=== PATIENT | female | born 1990 | race Hispanic/Latino ===

== ENCOUNTER 2021-04-21 07:18 | Day surgery (SDC) | payer OTHER ==
[~2021-04-21 07:18] MED LIST: LACTATED RINGERS 1,000 ML IV SCH; MIDAZOLAM 2 MG/2 ML INJ IV NR; SCOPOLAMINE TRANSDERMAL PATCH 72 HR TD NR
[2021-04-21] MEDS ORDERED: ceFAZolin/STERILE WATER 2 GM/20 ML SYRINGE IV NR (08:10)
--- NOTE | 2021-04-21 08:14 | Anesthesia Day of Surgery ---
Anesthesia Day of Surgery - Day of Surgery Patient Examined: Yes Patient H&P Reviewed: Yes Patient is NPO: Yes
--- NOTE | 2021-04-21 08:14 | Anesthesia Consultation ---
Anesthesia Consult and Med Hx Date of service: 04/21/21 - Airway Anesthetic Teeth Evaluation: Good ROM Head & Neck: Adequate Mental/Hyoid Distance: Adequate Mallampati Class: Class II Intubation Access Assessment: Probably Good - Pre-Operative Health Status ASA Pre-Surgery Classification: ASA3 Proposed Anesthetic Plan: General - Pulmonary Hx Smoking: No Hx Respiratory Symptoms: No (COVID+ 02/2020; symptoms resolved) - Cardiovascular System Hx Hypertension: No Hx Heart Attack/AMI: No Hx Percutaneous Transluminal Coronary Angioplasty (PTCA): No - Central Nervous System CVA: No - Endocrine Hx Renal Disease: No Hx Liver Disease: No Hx Non-Insulin Dependent Diabetes: Yes Hx Hypothyroidism: Yes (took synthroid this morning) - Other Systems Hx Obesity: Yes (BMI 43) - Additional Comments Anesthesia Medical History Comments: Hx PONV.
[2021-04-21] MEDS ORDERED: ceFAZolin/Water 2 GM/20 ML 2 GM/20 ML SYRINGE IV ONE (08:21)
[2021-04-21] MEDS ORDERED: ONDANSETRON 4 MG/2 ML INJ ONE (09:59)
[2021-04-21] MEDS ORDERED: fentaNYL 100 MCG/2 ML INJ ONE (09:59)
[2021-04-21] MEDS ORDERED: LIDOCAINE MPF (2%) 20 MG/1 ML VIAL 5 ML ONE (09:59)
[2021-04-21] MEDS ORDERED: propofoL 200 MG/20 ML VIAL IV ONE (10:00)
--- NOTE | 2021-04-21 11:04 | Post Operative Note ---
Pre-op diagnosis: pelvic pain Post-op diagnosis: same Findings: good capacity Procedure: cysto hydrodistension Anesthesia: GETJason Surgeon: BLANQUITA HDZ Estimated blood loss: none Pathology: none Condition: stable Disposition: PACU
--- NOTE | 2021-04-21 11:05 | Discharge Summary ---
Short Stay Discharge Plan Activity: no restrictions Weight Bearing Status: Full Weight Bearing Diet: low fat, low cholesterol Durable Medical Equipment Needed Upon Discharge: other (inc fluids ) Follow up with: CAROL LERMA MD [Primary Care Provider] - 7 Days BLANQUITA HDZ MD [Staff Physician] - 7 Days
--- NOTE | 2021-04-21 11:35 | Operative Report ---
DATE OF SURGERY: 04/21/2021 PREOPERATIVE DIAGNOSES: Pelvic pain, bladder pain. POSTOPERATIVE DIAGNOSES: Pelvic pain, bladder pain. PROCEDURES: Cystoscopy, retrograde and hydrodistention. SURGEON: Dc Rankin MD. ANESTHESIA: General. FINDINGS: This is a woman with pelvic pain and discomfort. She now presents for cystoscopy. DESCRIPTION OF PROCEDURE: The patient was brought to operating room and placed on the operating table. Following induction of anesthesia, placed in lithotomy position, prepped and draped in usual sterile fashion. Cystoscopy showed a good bladder capacity. Retrograde showed good filling, good drainage bilaterally. No persistent filling defects. The bladder was filled and easily accommodated about 1000 mL and hydrodistention was done twice. There was no significant glomerulations, no ulcers. The patient tolerated the procedure well. No bleeding. Bimanual exam showed no masses. The patient tolerated the procedure well and brought to recovery in stable condition. TID: [id number] RECEIPT: [id number] ANABELL/LAMINE
--- NOTE | 2021-04-21 12:09 | Post Anesthesia Evaluation ---
- Post Anesthesia Evaluation Patient Participated: Yes Airway Patent: Yes Stable Respiratory Function: Yes Nausea/Vomiting: No Temp > 96.8F: Yes Pain Manageable: Yes Adequeate Hydration: Yes Anesthesia Complications: No
[2021-04-21 18:47] VITALS: BP 126/70
--- NOTE | 2021-04-22 14:55 | Fluoroscopy Report ---
FL RETROGRADE UROGRAPHY Technique: Intraoperative fluoroscopic guidance was provided. Fluoroscopy time: 0.1 minutes. Fluoroscopy images: 8. Findings/Impression: Intraoperative fluoroscopic guidance for Dr. Rankin. Please see procedure repo rt for further details. Signer Name: Miguel Lazaro MD Signed: 04/21/2021 11:40 AM Workstation Name: [id number]
== END 2021-04-21 07:19 | disposition home or self-care (01) ==
LOC: OR 07:18
PROVIDERS: ATTEND Urology
DX: R10.2 Pelvic and perineal pain (principal); N30.20 Other chronic cystitis without hematuria; R39.89 Other symptoms and signs involving the genitourinary system; Z20.822 Contact with and (suspected) exposure to COVID-19; E66.9 Obesity, unspecified; E03.9 Hypothyroidism, unspecified; E11.9 Type 2 diabetes mellitus without complications; F31.9 Bipolar disorder, unspecified; Z88.2 Allergy status to sulfonamides; Z79.84 Long term (current) use of oral hypoglycemic drugs; Z79.899 Other long term (current) drug therapy; Z68.41 Body mass index [BMI] 40.0-44.9, adult
CPT/HCPCS: 52260; 74420; 82962; C1758; J0690; J2405; J2704; J3010; J3490; J7120; Q9967; U0003